=== PATIENT | female | born 1985 | race Caucasian/White ===

== ENCOUNTER 2018-01-16 10:16 | Emergency (ER) | payer MEDICAID ==
[2018-01-16 10:45] VITALS: BP 116/68
--- NOTE | 2018-01-16 10:59 | UC ---
Knee Pain HPI - HPI Summary HPI Summary: Pt c/o worsening knee pain that began after doing exercise that included deep knee bends. pt states that the pain began gradually beginning at knee and now is radiating proximal and distally. Pt states "Its feels like it spasms". - History of Current Complaint Chief Complaint: UCLowerExtremity Stated Complaint: RT KNEE Time Seen by Provider: 01/16/18 10:52 Hx Obtained From: Patient Hx Last Menstrual Period: 12/22/17 ?: No Onset/Duration: Gradual Onset, Lasting Days, Worse Since - onset Severity Initially: Mild Severity Currently: Moderate Pain Intensity: 7 Character: Aching, Spasmodic, Stiffness Aggravating Factor(s): Movement, Weight Bearing, Prolonged Standing, Stairs Alleviating Factor(s): Rest, Position, Cold Associated Signs And Symptoms: Positive: Negative Able to Bear Weight: Yes - Risk Factors Septic Arthritis Risk Factor: Negative Gout Risk Factor: Negative - Allergies/Home Medications Allergies/Adverse Reactions: Allergies Allergy/AdvReac Type Severity Reaction Status Date / Time MS Goodwin Meal [Goodwin Meal] Allergy Airway Verified 05/25/17 16:57 Obstruction walnuts Allergy Airway Uncoded 05/25/17 16:57 Obstruction Home Medications: Home Medications Meclizine TAB* [Antivert 12.5 TAB*] 12.5 mg PO TID PRN 01/16/18 [History Confirmed 01/16/18] Ondansetron ODT TAB* [Zofran 4 MG Odt TAB*] 4 mg PO Q6H PRN 01/16/18 [History Confirmed 01/16/18] carBAMazepine TAB(*) [Tegretol TAB(*)] 1 tab PO BID 01/16/18 [History Confirmed 01/16/18] PMH/Surg Hx/FS Hx/Imm Hx Previously Healthy: Yes - Surgical History Surgical History: Yes Surgery Procedure, Year, and Place: Gallbladder, 3 c-sections, breast reduction - Family History Known Family History: Positive: Unknown - The patient is adopted, so FHx, is unknown - Social History Occupation: Employed Full-time Lives: With Family Alcohol Use: None Substance Use Type: None Smoking Status (MU): Light Every Day Tobacco Smoker Type: Cigarettes Amount Used/How Often: 5 cigaretttes Have You Smoked in the Last Year: Yes Review of Systems Constitutional: Negative Skin: Negative Eyes: Negative ENT: Negative Respiratory: Negative Cardiovascular: Negative Gastrointestinal: Negative Genitourinary: Negative Motor: Decreased ROM - right knee Neurovascular: Negative Musculoskeletal: Arthralgia, Decreased ROM - right knee, Myalgia Neurological: Negative Psychological: Negative Is Patient Immunocompromised?: No All Other Systems Reviewed And Are Negative: Yes Physical Exam Triage Information Reviewed: Yes Appearance: Well-Appearing Vital Signs: Initial Vital Signs Temp 98.9 F 01/16/18 10:36 Pulse 67 01/16/18 10:36 Resp 16 01/16/18 10:36 BP 116/68 01/16/18 10:36 Pulse Ox 99 01/16/18 10:36 Vital Signs Reviewed: Yes Eye Exam: Normal ENT: Positive: Hearing grossly normal Neck exam: Normal Respiratory Exam: Normal Musculoskeletal Exam: Other Musculoskeletal: Positive: Other: - negative drawer test, negative vagus/valgus Neurological Exam: Normal Psychological Exam: Normal Skin Exam: Normal Knee Pain Course/Dx - Differential Dx/Diagnosis Differential Diagnosis/HQI/PQRI: Internal Derangement Of Knee, Sprain, Strain Provider Diagnoses: right knee sprain. right hamstring muscle spasm Discharge - Sign-Out/Discharge Documenting (check all that apply): Discharge/Admit/Transfer - Discharge Plan Condition: Stable Disposition: HOME Prescriptions: Cyclobenzaprine TAB* [Flexeril 10 MG TAB*] 10 mg PO Q8H PRN #15 tab PRN Reason: Pain Ibuprofen TAB* [Motrin TAB* 800 MG] 800 mg PO Q8H PRN #15 tab PRN Reason: Pain Patient Education Materials: Knee Pain (ED), Muscle Spasm (ED) Referrals: Arnaldo Shepard MD [Primary Care Provider] - If Needed Rudy Martínez MD [Medical Doctor] - If Needed - Billing Disposition and Condition Condition: STABLE Disposition: HOME
== END 2018-01-16 11:12 | disposition home or self-care (01) ==
LOC: MERGE 10:16 → UCCORT 10:16
DX: F17.210 Nicotine dependence, cigarettes, uncomplicated (principal); S83.91XA Sprain of unspecified site of right knee, initial encounter; X50.0XXA Overexertion from strenuous movement or load, initial encounter; X50.3XXA Overexertion from repetitive movements, initial encounter; Y93.B9 Activity, other involving muscle strengthening exercises; Y92.9 Unspecified place or not applicable; M62.838 Other muscle spasm
CPT/HCPCS: 99212; G0463

== ENCOUNTER 2018-07-07 14:14 | Emergency (ER) | payer OTHER, MEDICAID ==
[2018-07-07 14:52] VITALS: BP 97/65
--- NOTE | 2018-07-07 16:01 | UC ---
Complaint Female HPI - HPI Summary HPI Summary: 2 WEEKS OF WORSENING DYSURIA AND FREQUENCY. TODAY NOTICED SOME BLOOD IN URINE. ALSO C/O NAUSEA, LOWER ABD PAIN AND LEFT FLANK PAIN. - History Of Current Complaint Chief Complaint: UCGU Stated Complaint: URINARY Time Seen by Provider: 07/07/18 14:53 Hx Obtained From: Patient Hx Last Menstrual Period: 12/22/17 Onset/Duration: Gradual Onset, Lasting Weeks, Still Present Timing: Constant Severity Initially: Mild Severity Currently: Moderate Pain Intensity: 8 Pain Scale Used: 0-10 Numeric Character: Burning Aggravating Factor(s): Urination Alleviating Factor(s): Nothing Associated Signs And Symptoms: Positive: Back Pain, Nausea. Negative: Fever - Allergies/Home Medications Allergies/Adverse Reactions: Allergies Allergy/AdvReac Type Severity Reaction Status Date / Time almond Allergy Airway Verified 07/07/18 14:53 Obstruction walnuts Allergy Airway Uncoded 07/07/18 14:53 Obstruction Home Medications: Home Medications traZODone TAB* [Desyrel TAB*] 100 mg PO BEDTIME 07/07/18 [History Confirmed 11/19] PMH/Surg Hx/FS Hx/Imm Hx - Additional Past Medical History Additional PMH: ADD, EATING D/O Neurological History: Seizures - Surgical History Surgical History: Yes Surgery Procedure, Year, and Place: Gallbladder, 3 c-sections, breast reduction - Family History Known Family History: Positive: Unknown - The patient is adopted, so FHx, is unknown - Social History Alcohol Use: None Substance Use Type: None Smoking Status (MU): Light Every Day Tobacco Smoker Type: Cigarettes Amount Used/How Often: 5 cigaretttes Have You Smoked in the Last Year: Yes Review of Systems Constitutional: Negative Respiratory: Negative Cardiovascular: Negative Gastrointestinal: Nausea Genitourinary: Dysuria, Hematuria, Frequency All Other Systems Reviewed And Are Negative: Yes Physical Exam Triage Information Reviewed: Yes Appearance: Well-Appearing, No Pain Distress, Well-Nourished Vital Signs: Initial Vital Signs Temp 98.4 F 07/07/18 14:46 Pulse 80 07/07/18 14:46 Resp 18 07/07/18 14:46 BP 97/65 07/07/18 14:46 Pulse Ox 100 07/07/18 14:46 Laboratory Tests 07/07/18 15:00 POC Urine Color Other POC Urine Clarity Cloudy POC Urine pH 7.0 POC Ur Specif [place] Plain 1.025 POC Urine Protein Negative POC Ur Glucose (UA) Negative POC Urine Ketones Negative POC Urine Blood Trace-intact A POC Urine Nitrite Negative POC Urine Bilirubin Negative POC Urine Urobilinogen 0.2 POC U Leukocyte Esteras 1+ A Vital Signs Reviewed: Yes Eyes: Positive: Conjunctiva Clear ENT: Positive: Hearing grossly normal Neck: Positive: Supple Respiratory: Positive: No respiratory distress, No accessory muscle use Cardiovascular: Positive: Pulses Normal Abdomen Description: Positive: Soft, CVA Tenderness (L). Negative: CVA Tenderness (R), Distended, Guarding Musculoskeletal: Positive: No Edema Neurological: Positive: Alert Psychological: Positive: Age Appropriate Behavior Skin: Negative: rashes Complaint Female Dx - Course Course Of Treatment: PT SITTING IN ROOM IN NO DISTRESS. BUT GIVEN BLOOD ON URINE DIP AND PT C/O NAUSEA AND LEFT FLANK PAIN CONSIDER POSSIBILITY OF KIDNEY STONE. PT OFFERED CT BUT DECLINES. PREFERS TO TRY UTI TX AND WILL SEEK F/U IF NOT IMPROVING. - Differential Dx/Diagnosis Provider Diagnoses: UTI Discharge - Sign-Out/Discharge Documenting (check all that apply): Patient Departure All imaging exams completed and their final reports reviewed: No Studies - Discharge Plan Condition: Stable Disposition: HOME Prescriptions: Phenazopyridine TAB* [Pyridium TAB*] 200 mg PO TID #6 tab Sulfamethox/Trimethoprim DS* [Bactrim DS 800/160 TAB*] 1 tab PO BID #10 tab Patient Education Materials: Urinary Tract Infection in Women (ED) Referrals: Arnaldo Shepard MD [Primary Care Provider] - If Needed - Billing Disposition and Condition Condition: STABLE Disposition: Home
== END 2018-07-07 15:31 | disposition home or self-care (01) ==
LOC: UCCORT 14:14
DX: N39.0 Urinary tract infection, site not specified (principal); Z91.018 Allergy to other foods; F17.210 Nicotine dependence, cigarettes, uncomplicated
CPT/HCPCS: 81003; 87077; 87086; 87186; 99212; G0463

== ENCOUNTER 2019-01-12 16:12 | Emergency (ER) | payer OTHER, MEDICAID ==
[2019-01-12 16:36] VITALS: BP 117/74
--- NOTE | 2019-01-12 16:47 | UC ---
UC General HPI - HPI Summary HPI Summary: PAIN IN R EAR AND JAW X 3 DAYS. NO HX INJURY. DID A CANDLE TX AND GOT LOTS OF WAX FROM EAR BUT NO PAIN RELIEF. TRIAGE NOTE REVIEWED. - History of Current Complaint Chief Complaint: UCEar Stated Complaint: COUGH/RIGHT EAR PAIN Time Seen by Provider: 01/12/19 16:25 Hx Obtained From: Patient Hx Last Menstrual Period: January 02 Timing: Constant Pain Intensity: 5 Associated Signs & Symptoms: Negative: Fever, Headache - Allergy/Home Medications Allergies/Adverse Reactions: Allergies Allergy/AdvReac Type Severity Reaction Status Date / Time almond Allergy Airway Verified 07/07/18 14:53 Obstruction latex Allergy Rash Verified 01/12/19 16:35 walnuts Allergy Airway Uncoded 07/07/18 14:53 Obstruction Home Medications: Home Medications Cyclobenzaprine TAB* [Flexeril 10 MG TAB*] 10 mg PO BID PRN 01/12/19 [History Confirmed 01/12/19] LORazepam TAB(*) [Ativan 0.5 MG TAB (*)] 0.5 mg PO DAILY 01/12/19 [History Confirmed 01/12/19] Methylphenidate TAB* [Ritalin TAB*] 5 mg PO DAILY 01/12/19 [History Confirmed ] PMH/Surg Hx/FS Hx/Imm Hx - Additional Past Medical History Additional PMH: ADHD, CHRONIC NECK PAIN - Surgical History Surgical History: Yes Surgery Procedure, Year, and Place: Gallbladder, 3 c-sections, breast reduction - Family History Known Family History: Positive: Unknown - The patient is adopted, so FHx, is unknown - Social History Alcohol Use: None Substance Use Type: Marijuana Substance Use Comment - Amount & Last Used: today Smoking Status (MU): Light Every Day Tobacco Smoker Type: Cigarettes Amount Used/How Often: 5 cigaretttes Length of Time of Smoking/Using Tobacco: 4 years Have You Smoked in the Last Year: Yes Review of Systems All Other Systems Reviewed And Are Negative: No Constitutional: Negative: Fever ENT: Positive: Ear Ache. Negative: Sore Throat, Nasal Discharge, Sinus Congestion, Sinus Pain/Tenderness Musculoskeletal: Positive: Other: - CHRONIC NECK PAIN Physical Exam Triage Information Reviewed: Yes Appearance: Well-Appearing Vital Signs: Initial Vital Signs Temp 98.4 F 01/12/19 16:26 Pulse 91 01/12/19 16:26 Resp 18 01/12/19 16:26 BP 117/74 01/12/19 16:26 Pulse Ox 100 01/12/19 16:26 Vital Signs Reviewed: Yes Eyes: Positive: Conjunctiva Clear ENT: Positive: Pharynx normal, TMs normal - and canals are clear. no mastoid tenderness or auricular adenopathy., Other - R TMJ tenderness.. Negative: Nasal congestion, Nasal drainage Dental: Negative: Dental Fracture @, Abscess @ Neck: Positive: Supple, Nontender, No Lymphadenopathy Respiratory: Positive: Lungs clear Cardiovascular: Positive: RRR Musculoskeletal: Positive: ROM Intact Neurological: Positive: Alert Psychological: Positive: Age Appropriate Behavior Skin Exam: Normal Skin: Negative: Rashes Course/Dx - Differential Dx - Multi-Symptom Differential Diagnoses: Other - no concern for OM, OE or mastoiditis. no concern for infection. TMJ syndrom based on exam and the ear pain is secondary. will tx nsaid. - Diagnoses Provider Diagnosis: Otalgia, right ear, TMJ (temporomandibular joint syndrome) Discharge - Sign-Out/Discharge Documenting (check all that apply): Patient Departure All imaging exams completed and their final reports reviewed: No Studies - Discharge Plan Condition: Stable Disposition: HOME Patient Education Materials: Temporomandibular Disorder (ED), Earache (ED) Referrals: Arnaldo Shepard MD [Primary Care Provider] - 7 Days Additional Instructions: TAKE YOUR MOTRIN ROUTINELY X 3 DAYS THEN NEEDED. - Billing Disposition and Condition Condition: STABLE Disposition: Home
== END 2019-01-12 16:55 | disposition home or self-care (01) ==
LOC: UCCORT 16:12
DX: H92.01 Otalgia, right ear (principal); M26.609 Unspecified temporomandibular joint disorder, unspecified side; F90.9 Attention-deficit hyperactivity disorder, unspecified type; F17.210 Nicotine dependence, cigarettes, uncomplicated
CPT/HCPCS: 99211; G0463